=== PATIENT | female | born 1950 | race Caucasian/White ===

== ENCOUNTER 2017-04-09 07:39 | Outpatient (CLI) | payer MEDICARE, OTHER | END 2017-04-09 07:40 | disposition home or self-care (01) | LOC: BICMAMMO 07:39 | PROVIDERS: ATTEND Neurological Surgery | DX: R92.8 Other abnormal and inconclusive findings on diagnostic imaging of breast (principal); Z80.3 Family history of malignant neoplasm of breast | CPT/HCPCS: 76642; G0204; G0279; 77066 ==

== ENCOUNTER 2018-04-15 10:15 | Outpatient (CLI) | payer MEDICARE, OTHER ==
--- NOTE | 2018-04-15 12:10 | ULT ---
LEFT BREAST ULTRASOUND: HISTORY: Abnormal ultrasound. Followup of cluster of cysts. COMPARISON: 04/09/2017 and 04/18/2016 CORRELATION: Mammogram from the same date. FINDINGS: Sonographic evaluation at the 3 o'clock position of the left breast, 2 cm from the nipple, demonstrat es a circumscribed focus of decreased echogenicity, measuring up to 1.4 cm, consistent with a cluster of adjacent cysts. This remains stable. IMPRESSION: BI-RADS category 2-Benign findings. Return to annual mammographic screening. POS: OFF
== END 2018-04-15 10:16 | disposition home or self-care (01) ==
LOC: BICMAMMO 10:15
PROVIDERS: ATTEND Internal Medicine
DX: N60.19 Diffuse cystic mastopathy of unspecified breast (principal); Z80.3 Family history of malignant neoplasm of breast
CPT/HCPCS: 76642; 77066; G0279

== ENCOUNTER 2019-12-20 10:46 | Outpatient (CLI) | payer MEDICARE, OTHER ==
--- NOTE | 2019-12-20 12:22 | MMO ---
Bilateral MAMMO Bilat Screen [facility]. CLINICAL HISTORY: Patient is 69 years old and is seen for screening. The patient has no family history of breast cancer. The patient has no personal history of cancer. VIEWS: The views performed were: bilateral craniocaudal with tomosynthesis and bilateral mediolateral oblique with tomosynthesis. FILMS COMPARED: The present examination has been compared to prior imaging studies performed at [facility] on 04/18/2016, 10/08/2016, 04/09/2017 and 04/15/2018. This study has been interpreted with the assistance of computer-aided detection. MAMMOGRAM FINDINGS: There are scattered fibroglandular densities. There are stable benign appearing calcifications seen in both breasts. There are no suspicious masses, suspicious calcifications, or new areas of architectural distortion. IMPRESSION: THERE IS NO MAMMOGRAPHIC EVIDENCE OF MALIGNANCY. A ROUTINE FOLLOW-UP MAMMOGRAM IN 1 YEAR IS RECOMMENDED. THE RESULTS OF THIS EXAM WERE SENT TO THE PATIENT. ACR BI-RADS Category 2 - Benign finding MAMMOGRAPHY NOTE: 1. A negative mammogram report should not delay a biopsy if a dominant of clinically suspicious mass is present. 2. Approximately 10% to 15% of breast cancers are not detected by mammography. 3. Adenosis and dense breasts may obscure an underlying neoplasm. Reported by: MINE LI MD Electonically Signed: [id number]
== END 2019-12-20 10:47 | disposition home or self-care (01) ==
LOC: BICMAMMO 10:46
PROVIDERS: ATTEND Internal Medicine
DX: Z12.31 Encounter for screening mammogram for malignant neoplasm of breast (principal)
CPT/HCPCS: 77063; 77067

== ENCOUNTER 2021-05-31 12:56 | Outpatient (CLI) | payer MEDICARE, OTHER | END 2021-05-31 12:57 | disposition home or self-care (01) | LOC: BICCT 12:56 | PROVIDERS: ATTEND Internal Medicine | DX: R07.81 Pleurodynia (principal); R05.9 Cough, unspecified; R51.9 Headache, unspecified; I67.82 Cerebral ischemia | CPT/HCPCS: 70450; 71046 ==

== ENCOUNTER 2022-11-13 19:30 | Outpatient (CLI) | payer MEDICARE, OTHER | END 2022-11-13 19:31 | disposition home or self-care (01) | LOC: SLEEPLAB 19:30 | PROVIDERS: ATTEND Otolaryngology Sleep Medicine | DX: G47.33 Obstructive sleep apnea (adult) (pediatric) (principal); R06.83 Snoring; G47.10 Hypersomnia, unspecified; G47.61 Periodic limb movement disorder | CPT/HCPCS: 95810 ==

== ENCOUNTER 2023-10-19 16:00 | Outpatient (CLI) | payer MEDICARE, OTHER | END 2023-10-19 16:01 | disposition home or self-care (01) | LOC: SLEEPLAB 16:00 | PROVIDERS: ATTEND Internal Medicine Critical Care Medicine | DX: G47.33 Obstructive sleep apnea (adult) (pediatric) (principal); R06.83 Snoring; I25.10 Atherosclerotic heart disease of native coronary artery without angina pectoris; G47.00 Insomnia, unspecified; F41.8 Other specified anxiety disorders | CPT/HCPCS: 95800 ==

== ENCOUNTER 2024-01-05 19:42 | Emergency (ER) | payer MEDICARE, OTHER ==
[2024-01-05] MEDS ORDERED: Bacitracin 1 PK ONE (20:43)
[2024-01-05] MEDS ORDERED: Boostrix 0.5 ML (Tdap) VIAL (>/=7 yrs of age) ONE (21:43)
== END 2024-01-05 22:00 | disposition home or self-care (01) ==
LOC: ERS 19:42
DX: S20.212A Contusion of left front wall of thorax, initial encounter (principal); V89.2XXA Person injured in unspecified motor-vehicle accident, traffic, initial encounter
CPT/HCPCS: 70450; 71045; 90471; 90715; 93005